=== PATIENT | female | born 1995 | race Caucasian/White ===

== ENCOUNTER 2017-03-01 10:04 | Emergency (ER) | payer BC, OTHER | END 2017-03-01 11:46 | disposition home or self-care (01) | LOC: ER1 10:04 | DX: K08.89 Other specified disorders of teeth and supporting structures (principal) | CPT/HCPCS: 84703; 99283 ==

== ENCOUNTER 2021-03-03 21:26 | Emergency (ER) | payer OTHER ==
[~2021-03-03 21:26] MED LIST: CYCLOBENZAPRINE5 MG PO; DESYREL 50 MG T50 MG PO; KEFLEX CAP 500500 MG PO; METOPROLOL TART25 MG PO; NAPROXEN500 MG PO; NORCO 5-325 TA1 EACH PO; PROZAC20 MG PO
[2021-03-03] MEDS ORDERED: IBUPROFEN600 MG PO (22:42)
== END 2021-03-03 22:50 | disposition home or self-care (01) ==
LOC: ER1 21:26
DX: M25.561 Pain in right knee (principal); F17.210 Nicotine dependence, cigarettes, uncomplicated; Z88.8 Allergy status to other drugs, medicaments and biological substances; Z79.899 Other long term (current) drug therapy; V49.9XXA Car occupant (driver) (passenger) injured in unspecified traffic accident, initial encounter
CPT/HCPCS: 73564; 99283

== ENCOUNTER → 2021-12-02 | Outpatient (CLI) | payer OTHER ==
[~2021-12-02] MED LIST changes: +IBUPROFEN600 MG PO
== END ==
LOC: KOH-I 13:00
DX: J45.909 Unspecified asthma, uncomplicated (principal)
CPT/HCPCS: 71046

== ENCOUNTER 2022-04-16 12:32 | Emergency (ER) | payer OTHER ==
[2022-04-16 13:21] LABS: HEMOGLOBIN 13.7 gm/dl (12.3-15.3); WHITE BLOOD COUNT 9.1 K/UL (4.5-11.0)
[2022-04-16 13:50] LABS: BUN/CREATININE RATIO 17 (0-10)
== END 2022-04-16 17:05 | disposition home or self-care (01) ==
LOC: ER1 12:32
DX: U07.1 COVID-19 (principal); E86.0 Dehydration; Z88.2 Allergy status to sulfonamides; Z88.8 Allergy status to other drugs, medicaments and biological substances; Z88.1 Allergy status to other antibiotic agents
CPT/HCPCS: 71045; 80053; 81001; 82550; 82553; 84484; 85025; 93005; 99285